=== PATIENT | male | born 1935 | race Caucasian/White ===

== ENCOUNTER 2019-02-15 06:32 | Emergency (ER) | payer MEDICARE, BC ==
[~2019-02-15] VITALS: Ht 172.7 cm; Wt 82.6 kg
[2019-02-15] MEDS ORDERED: TDAP [DIPH/PERTUSSIS/TET] 0.5 ML VIAL IM ONE (06:59)
[2019-02-15] MEDS: TDAP [DIPH/PERTUSSIS/TET] 0.5 ML VIAL IM ONE (07:03)
[2019-02-15 08:39] VITALS: BP 145/81
== END 2019-02-15 08:40 | disposition home or self-care (01) ==
LOC: ER 06:34
DX: S01.01XA Laceration without foreign body of scalp, initial encounter (principal); R51 Headache; M54.2 Cervicalgia; I10 Essential (primary) hypertension; G20 Parkinson's disease; M48.00 Spinal stenosis, site unspecified; W01.198A Fall on same level from slipping, tripping and stumbling with subsequent striking against other object, initial encounter; Y93.89 Activity, other specified; Y92.89 Other specified places as the place of occurrence of the external cause; Y99.8 Other external cause status
CPT/HCPCS: 70450-TC; 72125-TC; 90715; A6402